=== PATIENT | male | born 1955 | race Caucasian/White ===

== ENCOUNTER 2017-05-12 05:15 | Emergency (ER) | payer BC ==
[~2017-05-12] VITALS: Ht 180.3 cm; Wt 101.8 kg
[~2017-05-12 05:15] MED LIST: ASPIRIN BUFFER325 MG PO; ASPIRIN325 MG PO; COREG6.25 M1 PO; DILAUDID2 MG PO; EFFIENT10 MG PO; ENDOCET 5-3251 EACH PO; FLOMAX0.4 MG PO; FLUOXETINE HCL10 MG PO; LIPITOR40 MG PO; LITE COAT ASPI325 M1 PO; LO-DOSE ASPIRIN81 M1 PO; NICOTINE PATCH1 EAC1 TD; PRINIVIL5 MG PO; ROCEPHIN2 GM/50 ML IV; ZOFRAN4 MG PO
[2017-05-12 07:48] LABS: HEMATOCRIT 38.9 % (38.0-50.0); MCHC 33.7 G/DL (30.0-36.0); MEAN PLAT.VOLUME 8.5 uM^3 (9.0-12.4); PLATELET COUNT 206 K/uL (156-360); RBC DIS.WIDTH-CV 12.2 % (11.8-14.6); RBC DIS.WIDTH-SD 41.1 % (39-53); RED BLOOD COUNT 4.23 M/uL (4.00-5.50); WHITE BLOOD COUNT 7.2 K/uL (4.1-10.2)
[2017-05-12 07:56] LABS: CHLORIDE 107 mEq/L (99-109); POTASSIUM 4.4 mEq/L (3.7-5.4); SODIUM 141 mEq/L (136-147)
[2017-05-12 07:57] LABS: GLUCOSE 121 mg/dL (70-99)
[2017-05-12 07:59] LABS: ANION GAP 7 MEQ/L (2-14)
[2017-05-12 08:01] LABS: GFR ESTIMATE (CALCULATED) > 59 mL/min/
[2017-05-12 08:02] LABS: UREA NITROGEN (BUN) 13 mg/dL (9-23)
[2017-05-12] MEDS ORDERED: VALIUM5 MG PO (11:48)
[2017-05-12] MEDS ORDERED: PERCOCET 5/31 TABLET PO (11:48)
[2017-05-12 12:05] VITALS: BP 167/99
== END 2017-05-12 12:08 | disposition home or self-care (01) ==
LOC: EME 05:15
PROVIDERS: Emergency Medicine
DX: M50.21 Other cervical disc displacement, high cervical region (principal); S13.4XXA Sprain of ligaments of cervical spine, initial encounter; W01.0XXA Fall on same level from slipping, tripping and stumbling without subsequent striking against object, initial encounter; I25.2 Old myocardial infarction; E78.5 Hyperlipidemia, unspecified; I10 Essential (primary) hypertension; Z95.5 Presence of coronary angioplasty implant and graft; F17.200 Nicotine dependence, unspecified, uncomplicated
CPT/HCPCS: 70450; 72125; 72141; 73030; 80048; 85027; 85610; 85730; 99281; 99284; J3010; J3360; J7030